=== PATIENT | male | born 1965 ===

== ENCOUNTER → 2019-04-10 | Outpatient (CLI) | payer BC | END | disposition home or self-care (01) | LOC: LAB 11:37 → LAB SHORT 11:37 | DX: L08.0 Pyoderma (principal) | CPT/HCPCS: 87070 ==

== ENCOUNTER 2020-09-27 05:24 | Emergency (ER) | payer BC ==
[~2020-09-27] VITALS: Ht 162.6 cm; Wt 72.1 kg
[2020-09-27] MEDS ORDERED: Prednisone20 MG PO (06:46)
[2020-09-27] MEDS ORDERED: CYCL10 PO (06:46)
== END 2020-09-27 08:04 | disposition home or self-care (01) ==
LOC: ER 05:24
DX: G89.29 Other chronic pain (principal); M54.5 Low back pain
CPT/HCPCS: 96372; 99283-25; J1885; J7512

== ENCOUNTER 2020-10-20 09:36 | Emergency (ER) | payer OTHER, BC ==
[~2020-10-20] VITALS: Ht 162.6 cm; Wt 72.1 kg
[~2020-10-20 09:36] MED LIST: CYCL10 PO; Prednisone20 MG PO
[2020-10-20] MEDS ORDERED: IBUP600 PO (11:08)
[2020-10-20] MEDS ORDERED: CYCL10 PO (11:08)
[2020-10-20] MEDS ORDERED: PRED20 PO (11:08)
== END 2020-10-20 12:07 | disposition home or self-care (01) ==
LOC: ER 09:36
DX: M54.16 Radiculopathy, lumbar region (principal); Z79.52 Long term (current) use of systemic steroids
CPT/HCPCS: 96372; 99283-25; A9270; J1100; J1885